=== PATIENT | female | born 1970 | race Caucasian/White ===

== ENCOUNTER 2021-07-27 15:31 | Emergency (ER) | payer MEDICAID ==
[~2021-07-27] VITALS: Ht 160 cm; Wt 82.6 kg
[2021-07-27 15:45] VITALS: BP 128/90
[2021-07-27] MEDS ORDERED: CYCL10TA9 PO (16:09)
[2021-07-27] MEDS ORDERED: IBUP-1957 PO (16:09)
[2021-07-27] MEDS ORDERED: IBUPROFEN 400 MG TABLET ONE (16:21)
[2021-07-27] MEDS ORDERED: IBUPROFEN 400 MG TABLET PO ONE (16:30)
== END 2021-07-27 16:54 | disposition home or self-care (01) ==
LOC: ER 15:37
DX: M54.31 Sciatica, right side (principal); Z79.1 Long term (current) use of non-steroidal anti-inflammatories (NSAID); Z79.899 Other long term (current) drug therapy

== ENCOUNTER 2023-12-26 23:13 | Emergency (ER) | payer MEDICAID ==
[~2023-12-26] VITALS: Ht 160 cm; Wt 81.6 kg
[~2023-12-26 23:13] MED LIST: CYCL10TA9 PO; IBUP-1957 PO
[2023-12-27] MEDS ORDERED: KETOROLAC TROMETHAMINE INJ 30 MG/ML VIAL ONE (01:05)
[2023-12-27 01:08] LABS: BASOPHILS % (AUTO) 0.4 % (0.0-2.0); EOSINOPHILS # (AUTO) 0.1 K/uL (0.0-0.7); EOSINOPHILS % (AUTO) 1.2 % (0.0-6.0); HEMATOCRIT 40 % (33-45); HEMOGLOBIN 13.4 g/dL (11.5-14.8); LYMPHOCYTES % (AUTO) 21.8 % (20.0-44.0); MEAN CORPUSCULAR HEMOGLOBIN 29 PG (26.0-33.0); MEAN CORPUSCULAR HGB CONC 34 g/dl (31.0-36.0); MEAN CORPUSCULAR VOLUME 85 fL (82-100); MONOCYTES # (AUTO) 0.3 K/uL (0.1-1.30); MONOCYTES % (AUTO) 3.7 % (2.0-12.0); NEUTROPHILS # (AUTO) 6.7 K/uL (1.8-8.9); NEUTROPHILS % (AUTO) 72.9 % (43.0-81.0); PLATELET COUNT (AUTO) 200 K/uL (150-450); RED BLOOD CELL COUNT(AUTO) 4.63 MIL/uL (4.0-5.2); RED CELL DISTRIBUTION WIDTH 13.9 % (11.5-15.0); WHITE BLOOD COUNT (AUTO) 9.2 K/uL (4.3-11.0)
[2023-12-27] MEDS: KETOROLAC TROMETHAMINE INJ 30 MG/ML VIAL IV ONE (01:13)
[2023-12-27 01:25] LABS: CALCIUM, SERUM 9.1 mg/dL (8.5-10.1); CREATININE 1.1 mg/dL (0.6-1.3); POTASSIUM 3.6 mmol/L (3.5-5.1)
[2023-12-27 01:31] LABS: ALBUMIN 3.3 g/dL (3.4-5.0); TOTAL PROTEIN, SERUM 7.4 g/dL (6.4-8.2)
[2023-12-27 01:37] LABS: APPEARANCE,URINE CLEAR (CLEAR); BILIRUBIN,URINE NEGATIVE (NEGATIVE); BLOOD, URINE NEGATIVE Ery/uL (NEGATIVE); COLOR,URINE YELLOW (YELLOW); KETONES,URINE NEGATIVE (NEGATIVE); LEUKOCYTE ESTERASE ,URINE NEGATIVE (NEGATIVE); NITRITE, URINE NEGATIVE (NEGATIVE); PH,URINE 6.5 (5.0-8.0); PROTEIN,URINE TRACE mg/dl (NEGATIVE); UGLUCOSE NEGATIVE (NEGATIVE); UROBILINOGEN,URINE 0.2 EU/dL (0.2)
[2023-12-27 01:44] LABS: AMPHETAMINE, URINE NEGATIVE (NEGATIVE); BARBITURATE, URINE NEGATIVE (NEGATIVE); BENZODIAZEPINE, URINE NEGATIVE (NEGATIVE); CANNABINOID, URINE NEGATIVE (NEGATIVE); COCCAINE, URINE NEGATIVE (NEGATIVE); OPIATE, URINE NEGATIVE (NEGATIVE); PHENCYCLIDINE SCREEN,URINE NEGATIVE (NEGATIVE)
[2023-12-27 02:28] LABS: RBC,URINE 0-2 /HPF (0-2); WBC,URINE 0-2 /HPF (0-3)
[2023-12-27 02:29] LABS: ADD URINE CULTURE NO; BACTERIA,URINE None seen /HPF (None Seen); MUCUS,URINE Moderate /LPF (None Seen)
[2023-12-27] MEDS ORDERED: FLUORESCEIN SODIUM OPHTH 1 EA STRIP ONE (03:29)
[2023-12-27] MEDS ORDERED: TETRAcaine 5 ML BOTTLE ONE (03:29)
[2023-12-27] MEDS: FLUORESCEIN SODIUM OPHTH 1 EA STRIP OP ONE (03:38)
[2023-12-27] MEDS: TETRACAINE HCL 0.5% OPHTALMIC 15 ML BOTTLE OP ONE (03:38)
[2023-12-27] MEDS ORDERED: predniSONE 20 MG TABLET ONE (03:59)
[2023-12-27] MEDS ORDERED: GENTAMICIN OPTH SOLN 0.3% 5 ML BOTTLE ONE (04:01)
[2023-12-27] MEDS ORDERED: CIPR5DRO18 EACHEYE (04:04)
[2023-12-27] MEDS ORDERED: PRED50TA PO (04:04)
[2023-12-27] MEDS: predniSONE 50 MG TABLET PO ONE (04:09)
[2023-12-27] MEDS: CIPROFLOXACIN HCL 0.3% 5 ML BOTTLE EACHEYE SCH (04:11)
[2023-12-27] MEDS: GENTAMICIN OPTH SOLN 0.3% 5 ML BOTTLE EACHEYE ONE (04:20)
[2023-12-27 04:24] VITALS: BP 134/77; TEMP 98.2; O2SAT 97
== END 2023-12-27 04:24 | disposition home or self-care (01) ==
LOC: ER 23:15
DX: H11.89 Other specified disorders of conjunctiva (principal); Z90.49 Acquired absence of other specified parts of digestive tract
CPT/HCPCS: 99285; 96374; 70450; 85025; 83605; 36415; 80053; 80307; 81001; J7512; J1885